=== PATIENT | male | born 1970 | race Caucasian/White ===

== ENCOUNTER 2021-08-24 01:18 | Day surgery (SDC) | payer OTHER, SELFPAY ==
[2021-08-10 08:25] VITALS: BMI 28.3
[2021-08-24 07:23] VITALS: BP 127/71; PULSE 88; RESP 18; TEMP 36.6; O2SAT 100
[2021-08-24] MEDS: LACTATED RINGERS 1,000 ML 150 ML IV CONT (07:33)
[2021-08-24 07:38] LABS: Glucose Point of Care 115 mg/dl (65-105)
--- NOTE | 2021-08-24 07:47 | WPDGICN ---
Assessment and Plan Assessment and plan (1) Encounter for screening colonoscopy: Code(s): Z12.11 - Encounter for screening for malignant neoplasm of colon Status: Acute Assessment and Plan: Patient presents today for screening colonoscopy. He appears to be at average risk for colon polyps. Further recommendations will be given after endoscopy. GI Consult Note Consult date/time: 08/24/21 07:47 Reason for consult: Neoplasia screening. HPI: Allan Mendes Jr. is a 51 year old male Referred for a screening colonoscopy. Patient's current weight appetite and bowel movements are normal. He denies abdominal pain. He has had no bleeding. Family history is noncontributory. Patient presents today for screening colonoscopy. Review of Systems Review of Systems: Review of systems noncontributory. [facility] Social History Social History Smoking status: Never smoker Alcohol intake: never Substance use: never Substance use type: does not use Living arrangements: alone Spiritual care concerns: No Meds Home Medications and Allergies Home Medications Medication Instructions Recorded Confirmed Type amlodipine 10 mg tablet 10 mg PO DAILY 08/10/21 08/10/21 History aspirin 81 mg tablet,delayed 81 mg PO DAILY 08/10/21 08/10/21 History release insulin glargine U-300 conc 300 10 unit subcut PRN PRN 08/10/21 08/10/21 History unit/mL (3 mL) subcutaneous pen Hyperglycemia (Toujeo Max U-300 SoloStar) insulin lispro 100 unit/mL 5 unit subcut PRN PRN Hypoglycemia 08/10/21 08/10/21 History subcutaneous pen (Humalog KwikPen (U-100) Insulin) lisinopril 30 mg tablet 30 mg PO DAILY 08/10/21 08/10/21 History metformin 1,000 mg tablet 1,000 mg PO DAILY 08/10/21 08/10/21 History rosuvastatin 20 mg tablet 20 mg PO DAILY 08/10/21 08/10/21 History Allergies Allergy/AdvReac Type Severity Reaction Status Date / Time No Known Allergies Allergy Verified 08/24/21 07:21 Vital Signs Vital Signs - 24 hr 08/24/21 07:23 Temperature 97.9 F Pulse Rate 88 Respiratory Rate 18 Blood Pressure 127/71 Pulse Oximetry 100 Oxygen Delivery Room Air Exam Narrative: Physical exam reveals patient to be alert. Vital signs stable. HEENT exam is unremarkable. Patient is anicteric. Lungs are clear to auscultation and percussion. Heart is without murmur or extra sounds. Abdomen bowel sounds are present soft nontender with no organomegaly. Digital external rectal exam is normal.
--- NOTE | 2021-08-24 08:10 | P.PNAN_ITS ---
Anes - Initial Pre Proc Eval Procedure: Operation Date: 08/24/21 08:30 Proposed Procedures p Screening Colonoscopy - Pancho Robles MD Date/Time: 08/24/21 08:10 Surgeon: Pancho Robles MD Pre Op Diagnosis: neoplasm screening Patient Data Age: 51 Gender: M Height: 1.88 m Weight: 96.7 kg Last Vital Signs Temp 97.9 F 08/24/21 07:23 Pulse 88 08/24/21 07:23 Resp 18 08/24/21 07:23 BP 127/71 08/24/21 07:23 Pulse Ox 100 08/24/21 07:23 O2 Del Method Room Air 08/24/21 07:23 Allergies Allergy/AdvReac Type Severity Reaction Status Date / Time No Known Allergies Allergy Verified 08/24/21 07:21 Home Medications Medication Instructions Recorded Confirmed Type amlodipine 10 mg tablet 10 mg PO DAILY 08/10/21 08/10/21 History aspirin 81 mg tablet,delayed 81 mg PO DAILY 08/10/21 08/10/21 History release insulin glargine U-300 conc 300 10 unit subcut PRN PRN 08/10/21 08/10/21 History unit/mL (3 mL) subcutaneous pen Hyperglycemia (Toujeo Max U-300 SoloStar) insulin lispro 100 unit/mL 5 unit subcut PRN PRN Hypoglycemia 08/10/21 08/10/21 History subcutaneous pen (Humalog KwikPen (U-100) Insulin) lisinopril 30 mg tablet 30 mg PO DAILY 08/10/21 08/10/21 History metformin 1,000 mg tablet 1,000 mg PO DAILY 08/10/21 08/10/21 History rosuvastatin 20 mg tablet 20 mg PO DAILY 08/10/21 08/10/21 History Laboratory Tests 08/24/21 07:35 POC Capillary Glucose 115 mg/dl H mg/dl (65-105) Patient hx anesthesia problems: none Family hx anesthesia problems: none Results Review: All pre-operative results and documents have been reviewed as part of the pre- operative evaluation. [facility] Social History Social History Smoking status: Never smoker Alcohol intake: never Substance use: never Substance use type: does not use Living arrangements: alone Spiritual care concerns: No Anes - Eval Final PreProcedure Day of Procedure 08/24/21 08:10 Patient weight: normal Heart: regular rate and rhythm Lungs: clear to auscultation Airway: Mallampati scale class II Neurological: alert and oriented Last oral intake: >/= 8 hours ASA classification: III Emergent: no Anesthetic plan: proceed Anesthesia type and monitoring: general GIVS and standard monitoring Results Review: All pre-operative results and documents have been reviewed as part of the pre- operative evaluation. Informed Consent: The patient's anesthetic plan and its attendant risks and benefits were discussed with the patient/family/POA. Questions were solicited and answers provided to the satisfaction of the patient/family/POA.
[2021-08-24 08:57] VITALS: BP 134/61; PULSE 73; RESP 23; O2SAT 100
[2021-08-24 09:07] VITALS: BP 149/76; PULSE 76; RESP 24; O2SAT 100
[2021-08-24 09:17] VITALS: BP 153/96; PULSE 74; RESP 24; O2SAT 100
[2021-08-24 09:25] LABS: Glucose Point of Care 108 mg/dl (65-105)
== END 2021-08-24 09:28 | disposition home or self-care (01) ==
PROVIDERS: PCP Family Medicine; Visit Provider Internal Medicine Gastroenterology
PROC: 0DJD8ZZ Inspection of Lower Intestinal Tract, Via Natural or Artificial Opening Endoscopic (ICD-10-PCS; CPT 45378; principal; 2021-08-24 08:30)
DX: Z12.11 Encounter for screening for malignant neoplasm of colon (principal); K64.8 Other hemorrhoids; K57.30 Diverticulosis of large intestine without perforation or abscess without bleeding; Z79.82 Long term (current) use of aspirin; Z79.4 Long term (current) use of insulin; Z79.84 Long term (current) use of oral hypoglycemic drugs
CPT/HCPCS: 45378; 82948; J2704; J7120